=== PATIENT | male | born 1980 | race Caucasian/White ===

== ENCOUNTER 2017-10-15 23:43 | Emergency (ER) | payer MEDICARE, MEDICAID ==
[~2017-10-15] VITALS: Ht 185.4 cm; Wt 63.0 kg
[~2017-10-15 23:43] MED LIST: RISP1TAB45 PO
[2017-10-16 00:22] LABS: ALBUMIN 4.4 g/dL (3.4-5.0); ANION GAP 9 mmol/L (5-15); CALCIUM 9.4 mg/dL (8.5-10.1); CHLORIDE 106 mmol/L (98-107)
[2017-10-16 00:26] LABS: TROPONIN I < 0.015 ng/mL (0.000-0.045)
[2017-10-16 01:11] VITALS: BP 125/86
== END 2017-10-16 01:29 | disposition home or self-care (01) ==
LOC: ED 10-16 00:52
DX: F15.10 Other stimulant abuse, uncomplicated (principal); F17.200 Nicotine dependence, unspecified, uncomplicated
CPT/HCPCS: 36415; 71045; 80048; 82040; 83880; 84484; 93005; 99285

== ENCOUNTER 2017-10-20 14:18 | Emergency (ER) | payer MEDICARE, MEDICAID ==
[~2017-10-20] VITALS: Ht 185.4 cm; Wt 63.4 kg
[2017-10-20 15:14] LABS: ANION GAP 6 mmol/L (5-15); CALCIUM 9.1 mg/dL (8.5-10.1); CHLORIDE 102 mmol/L (98-107); CREATININE 0.81 mg/dL (0.7-1.3); SALICYLATE LEVEL 3.2 mg/dL (2.8-20.0)
[2017-10-20 15:15] LABS: BASOPHILS # (AUTO) 0.01 x10^3/uL (0-0.1); BASOPHILS % (AUTO) 0 % (0-1); EOSINOPHILS % (AUTO) 2 % (1-7); LYMPHOCYTES # (AUTO) 1.25 x10^3/uL (1-3.4); LYMPHOCYTES % (AUTO) 21 % (22-44); MD NO; MEAN CORPUSCULAR HEMOGLOBIN 30.5 pg (27.5-34.5); MEAN CORPUSCULAR HGB CONC 33.6 g/dL (33.2-36.2); MEAN CORPUSCULAR VOLUME 90.6 fL (81-97); MEAN PLATELET VOLUME 9.4 fL (7.4-10.4); MONOCYTES # (AUTO) 0.68 x10^3/uL (0.2-0.8); MONOCYTES % (AUTO) 11 % (2-9); NEUTROPHILS # (AUTO) 4.01 x10^3/uL (1.8-6.8); NEUTROPHILS % (AUTO) 66 % (42-75); PLATELET COUNT 158 x10^3/uL (130-400); RED BLOOD COUNT 4.76 x10^6/uL (4.38-5.82); RED CELL DISTRIBUTION WIDTH 13.3 % (9.4-14.8)
[2017-10-20 15:16] LABS: ACETAMINOPHEN < 2 mcg/mL (10-30)
[2017-10-20 15:46] LABS: AMPHETAMINE SCREEN, URINE Positive (Negative); BARBITURATE SCREEN, URINE Negative (Negative); BENZODIAZEPINE SCREEN, URINE Positive (Negative); CANNABINOID SCREEN, URINE Positive (Negative); COCAINE SCREEN, URINE Negative (Negative); METHADONE SCREEN, URINE Negative (Negative); OPIATE SCREEN, URINE Positive (Negative)
[2017-10-20] MEDS ORDERED: ZIPRASIDONE 20 MG INJ IM PRN (17:30)
[2017-10-20] MEDS ORDERED: NICOTINE 21 MG/24 HR PATCH.TD24 TD SCH (17:30)
[2017-10-20] MEDS ORDERED: BENZTROPINE 1 MG TABLET PO PRN (17:30)
[2017-10-20] MEDS ORDERED: LORazepam 1MG TABLET PO PRN (17:30)
[2017-10-20] MEDS ORDERED: DOCUSATE 100 MG CAPSULE PO PRN (17:30)
[2017-10-20] MEDS ORDERED: ONDANSETRON ODT 4 MG PO PRN (17:30)
[2017-10-20] MEDS ORDERED: ACETAMINOPHEN 325 MG TABLET PO PRN (17:30)
[2017-10-20 19:27] VITALS: BP 102/70
[2017-10-20] MEDS ORDERED: RISPERIDONE 1 MG TABLET PO SCH (21:00)
== END 2017-10-20 19:47 ==
LOC: ED 16:56 → UNDOADMOB 16:57 → EDIP 16:57 → ED 17:40
DX: F10.20 Alcohol dependence, uncomplicated (principal); F15.222 Other stimulant dependence with intoxication with perceptual disturbance; F11.122 Opioid abuse with intoxication with perceptual disturbance; F31.9 Bipolar disorder, unspecified; Z59.0 Homelessness; Z72.89 Other problems related to lifestyle; Z60.9 Problem related to social environment, unspecified; Z79.899 Other long term (current) drug therapy
CPT/HCPCS: 36415; 80048; 80307; 80329; 82040; 85025; 99285; G0480